=== PATIENT | female | born 1980 | race Hispanic/Latino ===

== ENCOUNTER 2024-10-12 06:18 | Inpatient (IN) | payer SELFPAY ==
[2024-10-12] MEDS ORDERED: NA CHLORIDE 0.9% 1,000 ML ONE ×3 (07:26→16:17)
[2024-10-12] MEDS ORDERED: ONDANSETRON 4 MG/2 ML VIAL ONE ×2 (07:26→16:17)
[2024-10-12 07:44] LABS: Absolute Basophils 0.1 K/uL (0-0.5); Absolute Lymphocytes (CBC) 1.7 K/uL (0.7-4.9); Absolute Monocytes 1.4 K/uL (0.1-1.3); Absolute Neutrophil 21.2 K/uL (1.8-8.0); Basophils % 0.3 % (0-1.3); Hematocrit 23.3 % (36.0-45.0); Hemoglobin 7.3 g/dL (12.0-15.0); Lymphocytes % 7.1 % (15.3-44.8); MCH 18.7 pg (27.0-35.0); MCHC 31.4 g/dL (32.0-36.0); MCV 59.7 fL (80-100); MPV 8.5 fL (7.6-11.3); Monocytes % 5.6 % (3.3-12.3); Nucleated Red Blood Cells % 0.1 % (0-0); Platelets 447 thou/uL (152-406); Red Cell Distribution Width 21.2 % (12.1-15.2)
[2024-10-12 08:08] LABS: Albumin 2.7 g/dL (3.4-5.0); Albumin/Globulin Ratio 0.6 (1.1-1.8); Anion Gap 13.6 mEq/L (5.0-15.0); Bilirubin Direct 0.4 mg/dL (0-0.2); Bilirubin Indirect, Calculated 1.5 mg/dL (0.2-0.8); Bilirubin Total 1.9 mg/dL (0.2-1.0); Globulin 4.5 g/dL (2.3-3.5); Magnesium 1.4 mg/dL (1.6-2.4); Protein, Total 7.2 g/dL (6.4-8.2); Troponin High Sensitivity 13.1 pg/mL (<58.9)
--- NOTE | 2024-10-12 08:08 | RAD REPORT ---
EXAMINATION: CT HEAD WITHOUT CONTRAST CT CERVICAL SPINE WITHOUT CONTRAST CLINICAL INDICATION: Head and neck injury status post fall. Head and neck pain TECHNIQUE: Axial CT images from the skull base to the vertex without intravenous contrast. Axial CT i mages through the cervical spine were obtained without intravenous contrast. Sagittal and coronal reformatted images were created from the data set. Coronal and sagittal reformatted images were creat ed from the data set. One or more of the following dose reduction techniques were used: Automated exposure control, adjustment of the mA and/or kV according to patient size, and/or iterative reconstr uction. Unless otherwise specified, incidental findings do not require dedicated imaging follow-up. [id number]. Comparison: none FINDINGS: An intracranial bleed is not seen. Ventricles are normal in caliber. No significant hypodensity within the brain No extra-axial fluid collection. No fluid within the sinuses/mastoids No fracture or dislocation is seen involving the cervical spine. IMPRESSION: No acute intracranial abnormality noted A cervical fracture is not seen. 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
[2024-10-12 08:10] LABS: PT Prothrombin Time 15.5 SECONDS (10.0-13.0); Protime INR 1.38
[2024-10-12 08:11] LABS: Potassium 2.6 mEq/L (3.5-5.1)
--- NOTE | 2024-10-12 08:11 | RAD REPORT ---
EXAM: CT CHEST, ABDOMEN AND PELVIS WITHOUT CONTRAST CLINICAL INDICATION: Chest and abdominal pain TECHNIQUE: CT chest, abdomen and pelvis was performed, without IV contrast, as per department protoco l. Axial, sagittal and coronal reconstructions were obtained. One or more of the following dose reduction techniques were used: Automated exposure control, adjustment of the mA and/or kV according to the patient size, and/or iterative reconstruction. Unless otherwise specified, incidental findings do not require dedicated imaging follow-up. The lack of IV and oral contrast limits evaluation of the mediastinum, sarai, vessels, organs and clovis l. COMPARISON: None FINDINGS: Lungs are clear. No mediastinal or hilar lymphadenopathy seen. No pleural effusion. No pericardial effusion. Cholelithiasis. Liver, spleen, pancreas, adrenals kidneys and bladder appear grossly normal There is no evidence of diverticulitis IMPRESSION: Cholelithiasis
[2024-10-12 08:20] LABS: Influenza A Ag Negative; Influenza B Ag Negative; SARS-CoV-2 Antigen Rapid Res Negative (Negative)
[2024-10-12 08:28] LABS: Band Neutrophils 14 % (0-1); Differential Total Cells Count 100; Lymphocytes 11 % (15-42); Monocytes 5 % (0-10); Segmented Neutrophils 70 % (40-80)
[2024-10-12 08:29] LABS: Anisocytosis 1+; Blood Morphology Comment NOTED (NOT SEEN); Hypochromasia 1+; Microcytosis 2+; Platelet Estimate ADEQ
--- NOTE | 2024-10-12 08:35 | RAD REPORT ---
Procedure: Chest Single View HISTORY: Cough COMPARISON: none FINDINGS: The lungs appear clear of acute infiltrate. No significant pleural effusion noted. The heart is normal size. IMPRESSION: No acute abnormality is displayed.
--- NOTE | 2024-10-12 08:43 | EDPHYS ---
Physician Documentation [facility] Name: Tameka Jane Age: 43 yrs Sex: Female : 1980 Arrival Date: 10/12/2024 Time: 06:18 Bed 13 Private MD: ED Physician Raza Mejía HPI: 10/12 08:21 This 43 yrs old Female presents to ER via Wheelchair with complaints of Flu lizzy Symptoms, Nausea/Vomiting/Diarrhea, General Weakness. 08:21 The patient presents to the emergency department with nausea, vomiting, diarrhea, lizzy abdominal pain, of the right lower quadrant and left lower quadrant. Onset: The symptoms/episode began/occurred 2 day(s) ago. Possible causes: unknown. The symptoms are aggravated by nothing. The symptoms are alleviated by nothing. Associated signs and symptoms: The patient has no apparent associated signs or symptoms. The patient has not experienced similar symptoms in the past. 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 - Infectious Disease History:: Denies. - Social history:: Smoking status: unknown. ROS: 08:33 Eyes: Negative for injury, pain, redness, and discharge, ENT: Negative for injury, lizzy pain, and discharge, Neck: Negative for injury, pain, and swelling, Cardiovascular: Negative for chest pain, palpitations, and edema, Respiratory: Negative for shortness of breath, cough, wheezing, and pleuritic chest pain, Back: Negative for injury and pain, : Negative for injury, bleeding, discharge, and swelling, MS/Extremity: Negative for injury and deformity, Skin: Negative for injury, rash, and discoloration, Neuro: Negative for headache, weakness, numbness, tingling, and seizure, Psych: Negative for depression, anxiety, suicide ideation, homicidal ideation, and hallucinations, Allergy/Immunology: Negative for hives, rash, and allergies, Endocrine: Negative for neck swelling, polydipsia, polyuria, polyphagia, and marked weight changes, Hematologic/Lymphatic: Negative for swollen nodes, abnormal bleeding, and unusual bruising, 08:33 Cardiovascular: Positive for tachy, 08:33 Abdomen/GI: Positive for abdominal pain, nausea and vomiting, diarrhea, abdominal cramps, abdominal distension, Exam: 08:33 Constitutional: This is a well developed, well nourished patient who is awake, alert, lizzy and in no acute distress. Head/Face: Normocephalic, atraumatic. Eyes: Pupils equal round and reactive to light, extra-ocular motions intact. Lids and lashes normal. Conjunctiva and sclera are non-icteric and not injected. Cornea within normal limits. Periorbital areas with no swelling, redness, or edema. ENT: Nares patent. No nasal discharge, no septal abnormalities noted. Tympanic membranes are normal and external auditory canals are clear. Oropharynx with no redness, swelling, or masses, exudates, or evidence of obstruction, uvula midline. Mucous membranes moist. Neck: Trachea midline, no thyromegaly or masses palpated, and no cervical lymphadenopathy. Supple, full range of motion without nuchal rigidity, or vertebral point tenderness. No Meningismus. Chest/axilla: Normal chest wall appearance and motion. Nontender with no deformity. No lesions are appreciated. Cardiovascular: Regular rate and rhythm with a normal S1 and S2. No gallops, murmurs, or rubs. Normal PMI, no JVD. No pulse deficits. Respiratory: Lungs have equal breath sounds bilaterally, clear to auscultation and percussion. No rales, rhonchi or wheezes noted. No increased work of breathing, no retractions or nasal flaring. Back: No spinal tenderness. No costovertebral tenderness. Full range of motion. Skin: Warm, dry with normal turgor. Normal color with no rashes, no lesions, and no evidence of cellulitis. MS/ Extremity: Pulses equal, no cyanosis. Neurovascular intact. Full, normal range of motion., bilateral aka Neuro: Awake and alert, GCS 15, oriented to person, place, time, and situation. Cranial nerves II-XII grossly intact. Motor strength 5/5 in all extremities. Sensory grossly intact. Cerebellar exam normal. Normal gait. Psych: Awake, alert, with orientation to person, place and time. Behavior, mood, and affect are within normal limits. 08:33 ECG was reviewed by the Attending Physician. 08:33 Abdomen/GI: Inspection: abdomen appears normal, Bowel sounds: hyperactive, Palpation: moderate abdominal tenderness, in the right lower quadrant and left lower quadrant, Liver: no appreciated palpable abnormalities, Hernia: not appreciated, Vital Signs: 06:53 BP 108 / 73; Pulse 101; Resp 18; Temp 98.6; Pulse Ox 100% on R/A; Weight 86.18 kg; br2 Height 4 ft. 11 in. ; Pain 10/; 07:04 BP 107 / 55; Pulse 95; Pulse Ox 100% on R/A; ap3 09:21 BP 134 / 67; Pulse 90; Resp 27; Temp 98.4(O); Pulse Ox 97% on R/A; ap3 10:29 BP 119 / 85; Pulse 92; Pulse Ox 95% on R/A; ap3 11:00 BP 118 / 75; Pulse 96; Resp 19; Pulse Ox 99% ; cm10 11:30 BP 105 / 91; Pulse 99; Resp 19; Pulse Ox 99% ; cm10 12:00 BP 110 / 69; Pulse 93; Resp 19; Pulse Ox 99% ; cm10 12:30 BP 116 / 74; Pulse 94; Resp 19; Pulse Ox 99% ; cm10 13:00 BP 112 / 71; Pulse 96; Resp 19; Pulse Ox 97% ; cm10 13:30 BP 116 / 71; Pulse 94; Resp 19; Pulse Ox 98% ; cm10 14:00 BP 125 / 80; Pulse 98; Resp 19; Pulse Ox 100% ; cm10 14:30 BP 112 / 78; Pulse 94; Resp 19; Pulse Ox 100% ; cm10 15:11 BP 118 / 80; Pulse 98; Resp 18; Pulse Ox 98% on R/A; cm10 16:30 BP 113 / 81; Pulse 102; Resp 18; Pulse Ox 100% on R/A; cm10 06:53 Body Mass Index 38.37 (86.18 kg, 149.86 cm) br2 06:53 Pain Scale: Adult br2 MDM: 07:08 Medical Screening Exam initiated 10/12 07:15 Order name: Basic Metabolic Panel; Complete Time: 08:18 [facility] 10/12 07:15 Order name: CBC with Diff; Complete Time: 08:31 [facility] 10/12 07:15 Order name: LFT's; Complete Time: 08:18 [facility] 10/12 07:15 Order name: Magnesium; Complete Time: 08:18 [facility] 10/12 07:15 Order name: NT PRO-BNP; Complete Time: 08:18 [facility] 10/12 07:15 Order name: PT-INR; Complete Time: 08:18 [facility] 10/12 07:15 Order name: Troponin HS; Complete Time: 08:18 [facility] 10/12 07:15 Order name: Lipase; Complete Time: 08:18 [facility] 10/12 07:15 Order name: COVID-19 Ag + Flu A+B Ag; Complete Time: 08:31 [facility] 10/12 07:48 Order name: Manual Differential; Complete Time: 08:31 EDMS 10/12 08:20 Order name: Phosphorus; Complete Time: 13:38 [facility] 10/12 08:36 Order name: Urinalysis w/ reflexes; Complete Time: 13:38 [facility] 10/12 08:36 Order name: Type And Screen [facility] 10/12 09:24 Order name: Test, Urine; Complete Time: 13:38 EDMS 10/12 10:02 Order name: CBC with Automated Diff EDMS / 10:02 Order name: CBC with Automated Diff EDMS / 10:02 Order name: CBC with Automated Diff EDMS / 10:02 Order name: CBC with Automated Diff EDMS / 10:02 Order name: CBC with Automated Diff EDMS / 10:03 Order name: CBC with Automated Diff EDMS /07 10:03 Order name: CBC with Automated Diff EDMS /07 10:03 Order name: CBC with Automated Diff EDMS / 10:03 Order name: Comprehensive Metabolic Panel EDMS / 10:03 Order name: Comprehensive Metabolic Panel EDMS / 10:03 Order name: Comprehensive Metabolic Panel EDMS / 10:03 Order name: Comprehensive Metabolic Panel EDMS / 10:03 Order name: Comprehensive Metabolic Panel EDMS / 10:03 Order name: Comprehensive Metabolic Panel EDMS / 10:03 Order name: Comprehensive Metabolic Panel EDMS / 10:03 Order name: Comprehensive Metabolic Panel EDMS / 10:03 Order name: Lipid Profile EDMS / 10:03 Order name: Lipid Profile EDMS / 10:03 Order name: Magnesium EDMS / 10:03 Order name: Magnesium EDMS / 10:03 Order name: Magnesium EDMS / 10:03 Order name: Magnesium EDMS / 10:03 Order name: Magnesium EDMS 10/12 10:03 Order name: Magnesium EDMS 10/12 10:03 Order name: Magnesium EDMS 10/12 10:03 Order name: Magnesium EDMS 10/12 10:03 Order name: Phosphorus EDMS 10/12 10:03 Order name: Phosphorus EDMS 10/12 10:03 Order name: Phosphorus EDMS 10/12 10:03 Order name: Phosphorus EDMS 10/12 10:03 Order name: Phosphorus EDMS 10/12 10:03 Order name: Phosphorus EDMS 10/12 10:03 Order name: Phosphorus EDMS 10/12 10:03 Order name: Phosphorus EDMS 10/12 10:03 Order name: Troponin High Sensitivity EDMS 10/12 10:03 Order name: Troponin High Sensitivity EDMS 10/12 10:03 Order name: Troponin High Sensitivity EDMS 10/12 10:19 Order name: Lactate w/ 2H reflex if indic. EDMS 10/12 11:37 Order name: Basic Metabolic Panel EDMS 10/12 11:37 Order name: Magnesium EDMS 10/12 11:37 Order name: Phosphorus EDMS 10/12 13:57 Order name: Potassium EDMS 10/12 07:15 Order name: XRAY Chest (1 view); Complete Time: 08:36 [facility] 10/12 07:26 Order name: Head C Spine Mpr Wo Con; Complete Time: 08:18 EDMS 10/12 07:26 Order name: Chest Abd Pelvis Wo Con; Complete Time: 08:18 EDMS 10/12 08:20 Order name: US Abdomen Limited; Complete Time: 13:38 [facility] 10/12 11:03 Order name: Cholangiogram EDMS 10/12 07:15 Order name: EKG; Complete Time: 07:16 [facility] 10/12 10:02 Order name: CONS Physician Consult EDMS 10/12 11:39 Order name: CONS Physician Consult EDMS 10/12 07:15 Order name: Cardiac monitoring; Complete Time: 07:40 [facility] 10/12 07:15 Order name: EKG - Nurse/Tech; Complete Time: 07:40 [facility] 10/12 07:15 Order name: IV Saline Lock; Complete Time: 07:17 [facility] 10/12 07:15 Order name: Labs collected and sent; Complete Time: 07:40 [facility] 10/12 07:15 Order name: O2 Per Protocol; Complete Time: 07:17 [facility] 10/12 07:15 Order name: O2 Sat Monitoring; Complete Time: : [facility] 10/12 08:38 Order name: IV Saline Lock - Large Bore; Complete Time: :18 [facility] EC:33 Rate is 96 beats/min. Rhythm is regular. QRS [place] is Normal. ND interval is normal. QRS lizzy interval is normal. QT interval is normal. No Q waves. T waves are Normal. No ST changes noted. Clinical impression: NSR w/ Non-specific ST/T Changes and No evidence of ischemia. Interpreted by me. Reviewed by me. Administered Medications: 07:40 Drug: NS 0.9% IV 1000 ml IV at 1000 ml once; to be given as a bolus over 60 minutes ap3 Route: IV; Rate: 1000 ml; Site: right antecubital; 09:20 Follow up: IV Status: Completed infusion; IV Intake: 1000ml ap3 07:40 Drug: Ondansetron IVP 4 mg IVP once; over 2 minutes Route: IVP; Site: right antecubital;ap3 09:20 Follow up: Response: No adverse reaction; Nausea is decreased ap3 09:19 Drug: NS 0.9% with KCl IV 20 mEq/L 1000 ml IV at 125 ml/hr continuous Route: IV; Rate: ap3 125 ml/hr; Site: right antecubital; 14:45 Follow up: Response: No adverse reaction; IV Status: Order to discontinue infusion; IV cm10 Intake: 750ml 09:19 Drug: Famotidine IVP 20 mg IVP once; dilute with 10 mL 0.9% NaCl; give over 2 minutes ap3 Route: IVP; Site: left antecubital; 10:28 Follow up: Response: No adverse reaction ap3 09:19 Drug: metroNIDAZOLE IVPB 500 mg 100 ml IVPB at 200 ml/hr once over 30 mins Volume: 100 ap3 ml; Route: IVPB; Rate: 200 ml/hr; Infused Over: 30 mins; Site: left antecubital; 10:28 Follow up: IV Status: Completed infusion ap3 09:20 Drug: NS 0.9% IV 1000 ml IV at 1000 ml once; to be given as a bolus over 60 minutes ap3 Route: IV; Rate: 1000 ml; Site: left antecubital; 11:15 Follow up: Response: No adverse reaction; IV Status: Completed infusion; IV Intake: cm10 1000ml 09:20 Drug: Potassium Chloride IV 20 mEq IV at per protocol once; administer over 1-2 hours ap3 Route: IV; Rate: per protocol; Site: right antecubital; 11:15 Follow up: Response: No adverse reaction; IV Status: Completed infusion; IV Intake: cm10 100ml 10:19 Drug: Ciprofloxacin IVPB 400 mg 200 ml IVPB once over 60 mins Volume: 200 ml; Route: ap3 IVPB; Infused Over: 60 mins; Site: left antecubital; 11:21 Follow up: Response: No adverse reaction; IV Status: Completed infusion; IV Intake: cm10 200ml 11:15 Drug: Potassium Chloride IV 20 mEq IV at per protocol once; administer over 1-2 hours cm10 Route: IV; Rate: per protocol; Site: right antecubital; 12:15 Follow up: Response: No adverse reaction; IV Status: Completed infusion; IV Intake: cm10 100ml 11:21 Drug: Magnesium Sulfate IVPB 2 grams IVPB once over 2 hrs Route: IVPB; Infused Over: 2 cm10 hrs; Site: left antecubital; 12:21 Follow up: Response: No adverse reaction; IV Status: Completed infusion; IV Intake: cm10 100ml Disposition Summary: 10/12/24 08:42 Hospitalization Ordered Notes: Hospitalization Status: Inpatient Admission lizzy Provider: Shane Mcghee cha Location: Telemetry/[facility] (Inpatient) lizzy Condition: Fair lizzy Problem: new lizzy Symptoms: have improved lizzy Bed/Room Type: Standard lizzy Room Assignment: [facility](10/12/24 16:23) bc6 Diagnosis - Abdominal pain, Generalized lizzy - Fever, unspecified lizzy - Nausea with vomiting, unspecified lizzy - Diarrhea, unspecified lizzy - Bandemia lizzy - Elevated white blood cell count lizzy - Anemia, unspecified lizzy - Hypomagnesemia lizzy - Hypokalemia lizzy - Acute kidney failure, unspecified lizzy Forms: - Medication Reconciliation Form lizzy - SBAR form lizzy - Leadership Thank You Letter lizzy Signatures: Dispatcher [employer] Raza New MD MD cha Prokisch, Amanda, RN RN ap3 Shabana Coe bc6 Angela Bustamante RN RN cm10 Mora Delvalle RN RN br2 Corrections: (The following items were deleted from the chart) 07: 07:16 Head C Spine Cap Wo Con+CT.RAD.BRZ ordered. EDMS EDMS 08:20 08:20 PHOSPHORUS+C.LAB.BRZ ordered. EDMS EDMS 09:24 08:36 TEST, SERUM+SC.LAB.BRZ ordered. EDMS EDMS 16:23 08:42 lizzy bc6
--- NOTE | 2024-10-12 08:43 | ER ---
Nurse's Notes [facility] Name: Tameka Jane Age: 43 yrs Sex: Female : 1980 Arrival Date: 10/12/2024 Time: 06:18 Bed 13 Private MD: Diagnosis: Abdominal pain, Generalized;Fever, unspecified;Nausea with vomiting, unspecified;Diarrhea, unspecified;Bandemia;Elevated white blood cell count;Anemia, unspecified;Hypomagnesemia;Hypokalemia;Acute kidney failure, unspecified Presentation: 10/12 06:53 Chief complaint: Patient states: N/V/F/D SINCE TUESDAY. PT HAS HAD MULTIPLE FALLS DUE br2 TO WEAKNESS AND DIZZINESS. C/O TINGLING TO BILATERAL ARMS, LOWER AB PAIN AND BODYACHES ALL OVER. Coronavirus screen: Client denies travel out of the [place] in the last 14 days. Ebola Screen: Patient denies exposure to infectious person. Initial Sepsis Screen: Does the patient meet any 2 criteria? No. Patient's initial sepsis screen is negative. Does the patient have a suspected source of infection? No. Patient's initial sepsis screen is negative. Risk Assessment: Do you want to hurt yourself or someone else? Patient reports no desire to harm self or others. Onset of symptoms was October 10, 2024. 06:53 Method Of Arrival: Wheelchair br2 06:53 Acuity: [place] 3 br2 Triage Assessment: 06:56 General: Appears uncomfortable, Behavior is calm, cooperative. Pain: Complains of pain br2 in head, chest, pelvis, right arm, right hand, left arm and left hand. GI: Reports lower abdominal pain, diarrhea, nausea, vomiting. MANAGER OPERATING: 10:31 LMP N/A - control method, Not ap3 Historical: - Allergies: 06:56 No Known Allergies; br2 - Immunization history:: Adult Immunizations not up to date. - Infectious Disease History:: Denies. - Social history:: Smoking status: unknown. Screenin:04 Abuse screen: Denies threats or abuse. Nutritional screening: No deficits noted. ap3 Tuberculosis screening: No symptoms or risk factors identified. 10:30 [facility] ED Fall Risk Assessment (Adult) History of falling in the last 3 months, ap3 including since admission No falls in past 3 months (0 pts) Confusion or Disorientation No (0 pts) Intoxicated or Sedated No (0 pts) Impaired Gait Yes (1 pt) Mobility Assist Device Used No (0 pt) Altered Elimination No (0 pt) Score/Fall Risk Level 3 or more points = High Risk Oriented to surroundings, Maintained a safe environment, Educated pt \T\ family on fall prevention, incl call for assistance when getting out of bed, Assessed \T\ reinforced patient's understanding of fall precautions, Hourly rounding (assess needs \T\ fall precautionary measures) done, Used gait belt as appropriate Implemented a Fall Risk Plan of Care, Remained w/in arm's length of patient and in sight while toileting, Offered frequent toileting (1:1 observation), Remained with patient while ambulating, Utilized family, sitter, or virtual wire bender hand as indicated. Assessment: 07:03 General: Appears uncomfortable, Behavior is calm. Pain: Complains of pain in abdomen. ap3 Neuro: Level of Consciousness is awake, alert, obeys commands, Oriented to person, place, time, situation, Appropriate for age. Cardiovascular: Patient's skin is warm and dry. Respiratory: Airway is patent Respiratory effort is even, unlabored, Respiratory pattern is regular, symmetrical. GI: Reports lower abdominal pain, upper abdominal pain. 10:00 General: Appears in no apparent distress. uncomfortable, Behavior is cooperative. cm10 Neuro: No deficits noted. Level of Consciousness is awake, alert, obeys commands, Oriented to person, place, time, situation, Appropriate for age. Respiratory: No deficits noted. Airway is patent Respiratory effort is even, unlabored, Respiratory pattern is regular, symmetrical. GI: Reports upper abdominal pain, diarrhea, nausea. Musculoskeletal: No deficits noted. Range of motion: intact in all extremities. 12:00 Reassessment: Patient appears in no apparent distress at this time. Patient and/or cm10 family updated on plan of care and expected duration. Pain level reassessed. Patient is alert, oriented x 3, equal unlabored respirations, skin warm/dry/pink. 14:00 Reassessment: Patient appears in no apparent distress at this time. Patient and/or cm10 family updated on plan of care and expected duration. Pain level reassessed. Patient is alert, oriented x 3, equal unlabored respirations, skin warm/dry/pink. 16:00 Reassessment: Patient appears in no apparent distress at this time. Patient and/or cm10 family updated on plan of care and expected duration. Pain level reassessed. Patient is alert, oriented x 3, equal unlabored respirations, skin warm/dry/pink. Vital Signs: 06:53 BP 108 / 73; Pulse 101; Resp 18; Temp 98.6; Pulse Ox 100% on R/A; Weight 86.18 kg; br2 Height 4 ft. 11 in. ; Pain 10/10; 07:04 BP 107 / 55; Pulse 95; Pulse Ox 100% on R/A; ap3 09:21 BP 134 / 67; Pulse 90; Resp 27; Temp 98.4(O); Pulse Ox 97% on R/A; ap3 10:29 BP 119 / 85; Pulse 92; Pulse Ox 95% on R/A; ap3 11:00 BP 118 / 75; Pulse 96; Resp 19; Pulse Ox 99% ; cm10 11:30 BP 105 / 91; Pulse 99; Resp 19; Pulse Ox 99% ; cm10 12:00 BP 110 / 69; Pulse 93; Resp 19; Pulse Ox 99% ; cm10 12:30 BP 116 / 74; Pulse 94; Resp 19; Pulse Ox 99% ; cm10 13:00 BP 112 / 71; Pulse 96; Resp 19; Pulse Ox 97% ; cm10 13:30 BP 116 / 71; Pulse 94; Resp 19; Pulse Ox 98% ; cm10 14:00 BP 125 / 80; Pulse 98; Resp 19; Pulse Ox 100% ; cm10 14:30 BP 112 / 78; Pulse 94; Resp 19; Pulse Ox 100% ; cm10 15:11 BP 118 / 80; Pulse 98; Resp 18; Pulse Ox 98% on R/A; cm10 16:30 BP 113 / 81; Pulse 102; Resp 18; Pulse Ox 100% on R/A; cm10 06:53 Body Mass Index 38.37 (86.18 kg, 149.86 cm) br2 06:53 Pain Scale: Adult br2 ED Course: 06:22 Patient arrived in ED. gm2 06:56 Triage completed. br2 06:56 Arm band placed on left wrist. br2 07:00 Inserted saline lock: 20 gauge in right antecubital area, using aseptic technique. hw Blood collected. Flushed with 10 mL NS. 07:03 Annalisa Brown, RN is Primary Nurse. ap3 07:04 Patient has correct armband on for positive identification. Bed in low position. Call ap3 light in reach. Side rails up X2. 07:08 Raza Mejía MD is Attending Physician. lizzy 07:29 EKG done, by ED staff, reviewed by Raza Mejía MD. em1 07:32 XRAY Chest (1 view) In Process Unspecified. EDMS 07:40 COVID-19 Ag + Flu A+B Ag Sent. ap3 07:46 Head C Spine Mpr Wo Con In Process Unspecified. EDMS 07:46 Chest Abd Pelvis Wo Con In Process Unspecified. EDMS 08:40 Shane Mcghee is Hospitalizing Provider. lizzy 09:02 US Abdomen Limited In Process Unspecified. EDMS 09:19 Inserted saline lock: 22 gauge in left antecubital area, using aseptic technique. ap3 Flushed with 10 mL NS. 09:21 Urinalysis w/ reflexes Sent. ap3 10:12 T\T\S collected, blood band applied to patient. em1 10:12 Type And Screen Sent. em1 10:30 No provider procedures requiring assistance completed. ap3 16:40 Provided Education on: Need for admit. cm10 16:40 Patient admitted, IV remains in place. cm10 Administered Medications: 07:40 Drug: NS 0.9% IV 1000 ml IV at 1000 ml once; to be given as a bolus over 60 minutes ap3 Route: IV; Rate: 1000 ml; Site: right antecubital; 09:20 Follow up: IV Status: Completed infusion; IV Intake: 1000ml ap3 07:40 Drug: Ondansetron IVP 4 mg IVP once; over 2 minutes Route: IVP; Site: right antecubital;ap3 09:20 Follow up: Response: No adverse reaction; Nausea is decreased ap3 09:19 Drug: NS 0.9% with KCl IV 20 mEq/L 1000 ml IV at 125 ml/hr continuous Route: IV; Rate: ap3 125 ml/hr; Site: right antecubital; 14:45 Follow up: Response: No adverse reaction; IV Status: Order to discontinue infusion; IV cm10 Intake: 750ml 09:19 Drug: Famotidine IVP 20 mg IVP once; dilute with 10 mL 0.9% NaCl; give over 2 minutes ap3 Route: IVP; Site: left antecubital; 10:28 Follow up: Response: No adverse reaction ap3 09:19 Drug: metroNIDAZOLE IVPB 500 mg 100 ml IVPB at 200 ml/hr once over 30 mins Volume: 100 ap3 ml; Route: IVPB; Rate: 200 ml/hr; Infused Over: 30 mins; Site: left antecubital; 10:28 Follow up: IV Status: Completed infusion ap3 09:20 Drug: NS 0.9% IV 1000 ml IV at 1000 ml once; to be given as a bolus over 60 minutes ap3 Route: IV; Rate: 1000 ml; Site: left antecubital; 11:15 Follow up: Response: No adverse reaction; IV Status: Completed infusion; IV Intake: cm10 1000ml 09:20 Drug: Potassium Chloride IV 20 mEq IV at per protocol once; administer over 1-2 hours ap3 Route: IV; Rate: per protocol; Site: right antecubital; 11:15 Follow up: Response: No adverse reaction; IV Status: Completed infusion; IV Intake: cm10 100ml 10:19 Drug: Ciprofloxacin IVPB 400 mg 200 ml IVPB once over 60 mins Volume: 200 ml; Route: ap3 IVPB; Infused Over: 60 mins; Site: left antecubital; 11:21 Follow up: Response: No adverse reaction; IV Status: Completed infusion; IV Intake: cm10 200ml 11:15 Drug: Potassium Chloride IV 20 mEq IV at per protocol once; administer over 1-2 hours cm10 Route: IV; Rate: per protocol; Site: right antecubital; 12:15 Follow up: Response: No adverse reaction; IV Status: Completed infusion; IV Intake: cm10 100ml 11:21 Drug: Magnesium Sulfate IVPB 2 grams IVPB once over 2 hrs Route: IVPB; Infused Over: 2 cm10 hrs; Site: left antecubital; 12:21 Follow up: Response: No adverse reaction; IV Status: Completed infusion; IV Intake: cm10 100ml Medication: 10:31 VIS not applicable for this client. ap3 Intake: 09:20 IV: 1000ml; Total: 1000ml. ap3 11:15 IV: 100ml; Total: 1100ml. cm10 11:15 IV: 1000ml; Total: 2100ml. cm10 11:21 IV: 200ml; Total: 2300ml. cm10 12:15 IV: 100ml; Total: 2400ml. cm10 12:21 IV: 100ml; Total: 2500ml. cm10 14:45 IV: 750ml; Total: 3250ml. cm10 Outcome: 08:42 Decision to Hospitalize by Provider. lizzy 16:40 Admitted to Med/surg accompanied by nurse, via wheelchair, room 212, 10 16:40 Condition: stable 16:40 Instructed on the need for admit, 17:00 Admitted to Med/surg Report called to faxed to [facility] 17:43 Patient left the ED. 1 Signatures: Dispatcher [employer] EDMS Raza Mejía MD MD cha Martinez, Handy 1 Annalisa Brown RN RN ap3 Richie Montoya RN RN fly1 Angela Bustamante RN RN Caryn Lewis 2 Mora Delvalle RN RN br2 Shelly Fontanez Corrections: (The following items were deleted from the chart) 06:58 06:53 Chief complaint: Patient states: N/V/F/D SINCE TUESDAY. PT HAS HAD MULTIPLE br2 FALLS DUE TO WEAKNESS AND DIZZINESS. C/O TINGLING TO BILATERAL ARMS AND BODYACHES ALL OVER. br2 09:24 09:21 TEST, SERUM+SC.LAB.BRZ drawn and sent. [address]
[2024-10-12] MEDS ORDERED: FAMOTIDINE 20 MG/2 ML VIAL IV ONE (08:52)
[2024-10-12] MEDS ORDERED: NS KCL 20MEQ 1,000 ML IV ONE (08:52)
[2024-10-12] MEDS ORDERED: KCL 20 MEQ/100 mL IVPB 200 ML IV ONE (08:52)
[2024-10-12] MEDS ORDERED: METRONIDAZOLE 500mg IVPB 500 MG/100 ML BAG IV ONE (08:53)
[2024-10-12] MEDS ORDERED: Magnesium Sulfate 2gm IVPB 2 G/50 ML BAG IV ONE (08:53)
[2024-10-12] MEDS ORDERED: CIPROFLOXACIN 400mg IV 400 MG/200 ML BAG IV ONE (08:53)
--- NOTE | 2024-10-12 09:18 | RAD REPORT ---
EXAM: Right upper quadrant ultrasound. CLINICAL HISTORY: Abdominal pain COMPARISON: None FINDINGS: Multiple gallstones. Gallbladder wall appears mildly thickened. Biliary tree normal caliber IMPRESSION: Cholelithiasis Mildly thickened gallbladder wall may indicate cholecystitis
[2024-10-12 09:36] LABS: Specific Gravity 1.019 (1.005-1.030); Sqamous Epithelial <5 /HPF (None Seen); Urine Bacteria <20 /HPF (<20); Urine Bilirubin NEGATIVE (Negative); Urine Blood 2+ (Negative); Urine Clarity Extremely Turbid (Clear); Urine Color Yellow (Yellow); Urine Culture Reflex Order NOT NEEDED; Urine Glucose NEGATIVE (Negative); Urine Ketones 1+ (Negative); Urine Microscopic Reflex YN ORDER UMIC; Urine Mucus Slight /HPF (None Seen); Urine Nitrite NEGATIVE (Negative); Urine Protein 2+ (Negative); Urine RBC <5 /HPF (None Seen); Urine Urobilinogen Normal (Normal); Urine pH 5.5 (5.0-7.0)
[2024-10-12] MEDS ORDERED: ACETAMINOPHEN 325 MG TABLET PO PRN (09:56)
--- NOTE | 2024-10-12 10:07 | P.HP ---
Certification for Inpatient Patient admitted to: Inpatient With expected LOS: >2 Midnights Practitioner: I am a practitioner with admitting privileges, knowledge of patient current condition, hospital course, and medical plan of care. Services: Services provided to patient in accordance with Admission requirements found in Title 42 Section 412.3 of the Code of Federal Regulations Patient History Date of Service: 10/12/24 Reason for admission: Acute cholecystitis History of Present Illness: Tameka Jane is a 43 year old female with Pmhx HTN who presents to the ED with Two days for N/V/D and generalized abdominal pain. She denies having an episode like this in the past. On examination, she is in severe distress d/t intense abdominal pain, afebrile, lungs sounds clear, and Vitals signs stable. Laboratory evaluation significant for WBC 24, H&H 7.3/23 sodium 132, potassium 2.6, BUN/creatinine 28/1.8, magnesium 1.4, total bili 1.9, direct bili 0.4, indirect bili 1.5. CT abdomen pelvis report "Cholelithiasis' Ultrasound abdomen report "Mildly thickened gallbladder wall may indicate cholecystitis" MRCP reports "Cholelithiasis. Mild extrahepatic biliary ductal dilatation with common bile duct measuring 10 mm. No choledocholithiasis or stricture. Low insertion of the cystic duct." Tameka will be admitted to hospitalist service for further evaluation and treatm ent of Sirs 2/2 acute cholecystitis, Dr. Bustamante consulted. Allergies No Known Allergies Allergy (Unverified 10/12/24 10:22) - Past Medical/Surgical History -: HTN Review of Systems Other: per HPI Physical Examination - Physical Exam General: Alert, Oriented x3, Severe distress HEENT: Atraumatic, Normocephalic, PERRLA Neck: Supple, 2+ carotid pulse no bruit Respiratory: Clear to auscultation bilaterally, Normal air movement Cardiovascular: Normal pulses, Regular rate/rhythm, Normal S1 S2 Capillary refill: <2 Seconds Gastrointestinal: Normal bowel sounds, Soft and benign, Tenderness Musculoskeletal: No clubbing Integumentary: No rashes Neurological: Normal speech, Other (Weakkness d/t pain) - Studies Laboratory Data (last 24 hrs) 10/12/24 10/12/24 10/12/24 07:36 07:36 07:36 WBC 24.30 H Hgb 7.3 L Hct 23.3 L Plt Count 447 H PT 15.5 H INR 1.38 Sodium 132 L Potassium 2.6 L* BUN 28 H Creatinine 1.80 H Glucose 95 Magnesium 1.4 L Total Bilirubin 1.9 H AST 17 ALT 17 Alkaline Phosphatase 104 Lipase 34 Assessment and Plan - Plan Assessment and plan Sirs secondary to acute cholecystitis Elevated liver enzymes -Sirs criteria heart rate 101, WBC 23 -Flagyl and Cipro in the ED, Zosyn on the floor -Gentle IV fluid -Antiemetics -Pain control -Clear liquid diet, NPO at midnight -Dr. Bustamante consulted- plan for surgery in the AM -Dr. Pagan consulted -MRCP Cholelithiasis. Mild extrahepatic biliary ductal dilatation with common bile duct measuring 10 mm. No choledocholithiasis or stricture. Low insertion of the cystic duct. Hypokalemia Hypophosphatemia -K 2.6, Phos 1.3 -Replaced in the ED -Monitor in repeat labs Anemia -7.3/23 -Monitor for transfusion -Iron studies pending JAYDEN -BUN/creatinine 20/1.8 -IVF DVT PPx SCD Full code LOS 2 to 3 days Discharge Plan: Home Plan to discharge in: 72 Hours - Advance Directives Does patient have a Living Will: No Does patient have a Durable POA for Healthcare: No
[2024-10-12] MEDS ORDERED: MORPHINE 4 MG/ML SYR ONE (11:36)
[2024-10-12] MEDS: MORPHINE 4 MG/ML SYR IV PRN (11:45)
[2024-10-12] MEDS ORDERED: HYDROMORPHONE HCL 2 MG/ML inj IV PRN (13:35)
--- NOTE | 2024-10-12 15:21 | RAD REPORT ---
EXAMINATION: MR CHOLANGIOGRAM CLINICAL INDICATION: Female, 43 years old. acute cholecystitis TECHNIQUE: Multiplanar, multisequence MR imaging of the abdomen without intravenous contrast, and wit h specific attention to the biliary system. Unless otherwise specified, incidental findings do not require dedicated imaging follow-up. 3D MIP reconstruction performed. COMPARISON: Same day CT FINDINGS: GALLBLADDER: Cholelithiasis is present. No pericholecystic fluid or definite wall thickening identifi ed. The gallbladder is underdistended. BILE DUCTS: The extra hepatic common bile duct measures up to 10 mm but no evidence of choledocholith iasis. Minimal intrahepatic biliary duct dilatation. Low insertion of the cystic duct. LIVER: Limited evaluation but grossly unremarkable. PANCREAS: Normal signal. No mass, ductal dilation, or carolyne-pancreatic fluid. LYMPH NODES: No lymphadenopathy. ADDITIONAL FINDINGS: None. IMPRESSION: Cholelithiasis. Mild extrahepatic biliary ductal dilatation with common bile duct measuring 10 mm. No choledocholithiasis or stricture. Low insertion of the cystic duct.
[2024-10-12] MEDS ORDERED: HYDROMORPHONE HCL 1 MG/ML INJ ONE (16:17)
[2024-10-12] MEDS: NA CHLORIDE 0.9% 1,000 ML IV SCH (16:28)
[2024-10-12] MEDS: POTASSIUM PHOS 30 MM in NA CHLORIDE 0.9% 500 ML IV ONE (16:28)
[2024-10-12] MEDS: HYDROMORPHONE HCL 1 MG/ML INJ IV PRN (16:28)
[2024-10-12] MEDS: ONDANSETRON 4 MG/2 ML VIAL IV PRN (16:29)
[2024-10-12 16:38] VITALS: BMI 38.3
[2024-10-12] MEDS ORDERED: METRONIDAZOLE 500mg IVPB 500 MG/100 ML BAG IV SCH (17:00)
[2024-10-12] MEDS: PIPER TAZO 3.375 GM in NA CHLORIDE 0.9% 100 ML IV SCH (18:00)
[2024-10-12 18:02] VITALS: O2SAT 100
--- NOTE | 2024-10-12 19:47 | CON ---
Date of Consultation: 10/12/2024 Diagnoses: Acute cholecystitis, symptomatic cholelithiasis, increased LFTs. History Of Present Illness: This is the case of a 43-year-old patient, who complained with nausea, v omiting, and abdominal pain since last Tuesday. She has not been able to keep much on diet roy. She denies any trauma, dysuria, hematuria, hematochezia, melena. Denies any recent traveling out of the country. Denies any family member sick at home. Allergies: NONE. Past Surgical History: Include C-sections. Social History: She does not smoke. She does not drink alcohol. Family History: Noncontributory. Medical History: None. Physical Examination: Vital Signs: Reviewed. General: Patient is awake, alert. Eyes: Pupils are equal and reactive. Anicteric. Neck: Supple. Chest: Clear. Heart: S1, S2. Abdomen: Soft and depressible. Epigastric, right upper quadrant pain. The rest of the abdomen is s oft and depressible. Extremities: Good capillary refill. Breasts: Deferred. Pelvic: Deferred. Rectal: Deferred. Laboratory Data: WBC count is 24.3 with hemoglobin of 7.3, INR of 1.38. Potassium is 3.1, sodium is 132, creatinine is 1.8, total bilirubin of 1.9, direct bilirubin of 0.4, indirect bilirubin 1.5. T 17, ALT 17, alkaline phosphate 104. Serum test apparently was canceled. Lipase 34. Radiological Data: Abdominal ultrasound shows mild thickening gallbladder wall may indicate cholecys titis. Multiple gallstones present. CAT scan of the abdomen and pelvis interpreted by Dr. Bk duncan cholelithiasis. Assessment: This is a 43-year-old patient, who comes to us with acute cholecystitis, symptomatic cho lelithiasis. LFTs are slightly elevated. So, MRCP was done. GI was consulted to Dr. Pagan. If MR CP showing signs of a common bile duct stone, then GI has been consulted for ERCP. If not, we will p roceed with laparoscopic, possible open cholecystectomy. The patient is fully explained the benefits , alternatives, and risks including, but not limited to infection, bleeding, damage to adjacent struc tures, anesthesia complication, choledocholithiasis, bile leak, pancreatitis, NV, and even . Alvino hairston also understands this may not relieve symptoms, she might need more than one surgical intervention. She understood and we will see what the MRCP shows and then proceed accordingly. PARIS Voice ID: [id number] Report ID: [id number]
[2024-10-12] MEDS ORDERED: CIPROFLOXACIN 400mg IV 400 MG/200 ML BAG IV SCH (21:00)
[2024-10-12 23:15] LABS: Anion Gap 13.6 mEq/L (5.0-15.0); Potassium 3.6 mEq/L (3.5-5.1)
[2024-10-12 23:16] LABS: Magnesium 2.1 mg/dL (1.6-2.4); Phosphorus 3.8 mg/dL (2.5-4.9)
--- NOTE | 2024-10-13 00:52 | CON ---
Date of Consultation: 10/12/2024 Reason For Consultation: Acute cholecystitis with cholelithiasis with generalized abdominal pain, nausea, vomiting, fevers, chills. History Of Present Illness: The patient is a 43 year-old female with history of hypertension, presented to the hospital with 2-day history of ongoing abdominal pain started in the right and left lower quadrant with diarrhea and then going to the upper abdomen with nausea, vomiting, fevers, chills as well. Patient states the pain has reached 10/10 level. Currently in-hospital with IV pain medicine, it is down to approximately 3/10. Ultrasound of abdomen also revealed gallstone in gallbladder and mildly gallbladder wall consistent with possible acute cholecystitis. Liver numbers have been normal except for total bilirubin of 1.9, but direct bilirubin 0.4, indirect bilirubin 1.5, consistent with possible severe sepsis with a white count of 24,000 and polys of 87%. Past Medical History: Significant for hypertension. Home Medication: Appears none. Social History: She has 4 children. in the past, now. No tobacco. No alcohol. Family History: Father alive with hypertension and a bad back. Mother alive with diabetes, hypertension. Review of Systems: The patient has right and left lower quadrant pain associated with diarrhea over the past few days and extending to the right and left upper quadrant and mid epigastric area with nausea, vomiting, fevers, chills. Of note, the liver numbers are normal. No jaundice noted by patient. No change in urine color or stool color. She denies any chest pain, shortness of breath, seizure, syncope, muscle aches, joint aches, hematemesis, coffee-grounds emesis, hematuria, dysuria, polydipsia, and no depression or anxiety. Physical Examination: Vital Signs: She is 4 feet 11 inches, 189 pounds, BMI of 38.3 kg/sq m. Temperature of 97.8 Fahrenheit, pulse is 88, respirations 18, blood pressure 118/79, O2 saturation 100%. General: She is an obese female, lying in bed, no acute distress. HEENT: Normocephalic, atraumatic. Anicteric. Pupils equal, round, and reactive to light. Oropharynx is clear. Neck: Supple. No masses. Respirations: Clear to auscultation bilaterally. Cardiac: Regular rate and rhythm. Gastrointestinal: Positive bowel sounds. Soft, nondistended. Tenderness all over abdomen. Positive Pike sign, however, as well as also some mild guarding in the lower abdomen as well as the upper abdomen. No hepatosplenomegaly. Extremities: No clubbing, cyanosis, or edema. 2+ pulses Neuro: Alert and oriented x3. Grossly nonfocal. 5/5 motor. Sensation intact to light touch. Laboratory Data: The patient has a white count of 24.3; hemoglobin of 7.3; MCV of , so she has iron deficiency anemia; platelet count was 447; polys of 87%; lymphocytes 7%; monocytes 6%. The patient has a PT of 15.5, INR of 1.38. The patient today had a sodium 132, potassium 2.6, chloride 99, bicarb 22, BUN 28, creatinine 1.8, glucose 95. Lactic 0.9, calcium 8.2, phosphorus low at 1.3, magnesium 1.4, total bili 1.9, direct bili 0.4, indirect bili 1.5, AST of 17, ALT of 17, alkaline phosphatase 104, troponin I of 13.1, normal. B-type natriuretic peptide elevated at 148. Total protein 7.2, albumin lipase 34. UA revealed a pH of 5.5, specific gravity 1.019, 1+ ketone, 1+ blood, 25 leukocyte esterase, less than 5 rbc's, 5 to 10 white blood cells, squamous epithelial cells less than 5, and less than 20 bacteria, 2+ protein. Urine test negative. Influenza negative. COVID negative. CT of abdomen and pelvis revealed gallstones in gallbladder were negative. Ultrasound revealed gallstones in gallbladder with thickening of gallbladder wall consistent with possible cholecystitis. No noted. MRCP noted gallstones in gallbladder, common bile duct clear except as slightly dilated to 10 mm. No stone or stricture seen. Low insertion of the cystic duct noted as well. Her AST, ALT of 17 and 17, normal alkaline phosphatase 104. Impression: 1. Acute cholecystitis and cholelithiasis with CT revealing gallstones in gallbladder, ultrasound revealed gallstones in gallbladder with mild thickened gallbladder wall consistent with cholecystitis. Normal biliary tree. MRCP revealed gallstones in gallbladder. No gallstones noted in the biliary tree. CBD mildly elevated 10 mm. No stone or strictures . There is a low insertion point for the cystic duct. Also, AST and ALT are normal at 17 and 17, alkaline phosphatase normal 104, total bilirubin 1.9, and direct bilirubin 0.4, indirect bilirubin 1.5, consistent with possible sepsis or syndrome or other. Lipase normal at 34. 2. Sepsis. White count of 24.3, polys of 87%. Likely source is acute cholecystitis in this patient, though she does have diarrhea with change in bowel habits, which could be a source as well. 3. Urinary tract possible with the leukocyte esterase 25, and less than 5 squamous epithelial cells and 2+ protein, otherwise is negative. 4. Probable iron deficiency anemia with hemoglobin of 7.3, MCV of . 5. Coagulopathy with INR of 1.38. 6. Renal failure could be acute on chronic with a creatinine of 1.8. 7. History of hypertension. 8. Change in bowel habits, diarrhea, right and left lower quadrant pain could be associated with colitis or gastroenteritis. Recommendation: 1. Continue IV fluids, IV antibiotics. 2. Keep patient n.p.o. 3. Check stool studies. 4. Laparoscopic cholecystectomy as per Surgery. 5. Check iron numbers. HECTOR/JO Voice ID: [id number] Report ID: [id number]
[2024-10-13 03:53] LABS: C.diff Antigen/Toxin Ag neg : Tox neg (NEG : NEG); CDIFF INTERNAL NEG CONTROL White Background (WHITE BKGD); STOOL CONSISTENCY Liquid/Semi-Solid
[2024-10-13 05:22] LABS: Absolute Basophils 0.1 K/uL (0-0.5); Absolute Lymphocytes (CBC) 1.2 K/uL (0.7-4.9); Absolute Monocytes 1.2 K/uL (0.1-1.3); Absolute Neutrophil 11.7 K/uL (1.8-8.0); Basophils % 0.4 % (0-1.3); Eosinophils % 0.3 % (0-4.4); Hematocrit 19.8 % (36.0-45.0); Lymphocytes % 8.4 % (15.3-44.8); MCH 18.3 pg (27.0-35.0); MCHC 30.4 g/dL (32.0-36.0); MCV 60.2 fL (80-100); MPV 8.2 fL (7.6-11.3); Monocytes % 8.6 % (3.3-12.3); Neutrophils % 82.3 % (41.7-73.7); Platelets 361 thou/uL (152-406); RBC Red Blood Cell Count 3.29 M/uL (3.86-4.86)
[2024-10-13 05:48] LABS: ALT/SGPT 37 U/L (13-56); AST/SGOT 61 U/L (15-37); Albumin 2.1 g/dL (3.4-5.0); Albumin/Globulin Ratio 0.5 (1.1-1.8); Alkaline Phosphatase 120 U/L (45-117); Anion Gap 11.4 mEq/L (5.0-15.0); BUN Blood Urea Nitrogen 20 mg/dL (7-18); Bicarbonate 21 mEq/L (21-32); Bilirubin Total 1.1 mg/dL (0.2-1.0); Ferritin 78.9 ng/mL (8-252); Globulin 3.9 g/dL (2.3-3.5); Glomerular Filtration Rate 68 ml/min (=/>90); Glucose Level 98 mg/dL (74-106); HDL Cholesterol 31 mg/dL (40-60); LDL Cholesterol, Calculated 39 mg/dL (<130); LDL Cholesterol,Calc NonReport 39; Magnesium 2.2 mg/dL (1.6-2.4); Phosphorus 2.1 mg/dL (2.5-4.9); Potassium 3.4 mEq/L (3.5-5.1); Sodium Level 137 mEq/L (136-145); Transferrin 175 mg/dL (200-360)
[2024-10-13 05:50] LABS: Iron < 10.0 ug/dL (50-170)
[2024-10-13] MEDS: KCL 20 MEQ/100 mL IVPB 20 MEQ/100 ML BAG IV SCH (10:59)
--- NOTE | 2024-10-13 13:18 | P.PN ---
Date of Service: 10/13/24 Subjective Feeling better this morning severe anemia, PRBC transfusion today ROS 10 point ROS as noted above, otherwise negative Physical Exam General: Alert, Oriented x3, NAD HEENT: Atraumatic, Normocephalic, PERRLA Neck: Supple, 2+ carotid pulse no bruit Respiratory: Clear to auscultation bilaterally, Normal air movement Cardiovascular: Normal pulses, RRR, Normal S1 S2 Capillary refill: <2 Seconds Gastrointestinal: Normal bowel sounds, Soft and Tender on palpation Musculoskeletal: No clubbing Integumentary: No rashes Neurological: Normal speech Vitals Reviewed Problem list Sirs secondary to acute cholecystitis Elevated liver enzymes Hypokalemia Hypophosphatemia Anemia JAYDEN Assessment and Plan Sirs secondary to acute cholecystitis Elevated liver enzymes -Sirs criteria heart rate 101, WBC 23 -Flagyl and Cipro in the ED, Zosyn on the floor -Gentle IV fluid -Antiemetics -Pain control -Clear liquid diet, NPO at midnight -Dr. Bustamante consulted- plan for surgery in the AM -Dr. Pagan consulted -MRCP Cholelithiasis. Mild extrahepatic biliary ductal dilatation with common bile duct measuring 10 mm. No choledocholithiasis or stricture. Low insertion of the cystic duct. Hypokalemia Hypophosphatemia -K 2.6, Phos 1.3 -Replaced in the ED -Monitor in repeat labs Anemia -7.10/28 -Monitor for transfusion -Iron studies pending JAYDEN -BUN/creatinine 20/1.8 -IVF Hospital interval course 10/13/24 -Severely anemic, needing transfusion today -Dr. Bustamante requests postpone surgery till Sunday 10/15 -Reports feeling much better today -WBC and electrolytes improved DVT PPx SCD Full code LOS 2 to 3 days Discharge Plan: Home Plan to discharge in: 72 Hours
--- NOTE | 2024-10-13 14:32 | PN ---
Diagnoses: Hypokalemia, acute cholecystitis, gastroenteritis, anemia. Subjective: The patient feels better. She was scheduled for surgery today after the MRI shows no ch oledocholithiasis, but we note she has a few things at the same time, we explained to her anemia of 6 is a little bit too low right now. She clinically feels better with no more nausea or vomiting, no more diarrhea that she was before. The potassium was corrected. Right now, she is starting to get b lood transfusion, starting to work in the next few hours, and then hydration is in process too, repla cement of also other electrolytes. Objective: Chest: Clear right now. Abdomen: Soft and depressible. No guarding or rebound. No Pike sign today. Extremities: Good capillary refill. Data: Blood work was reviewed. White count is getting better. Plan: Continue with same plan of laparoscopic possible open cholecystectomy once medically she is op timized since we see some improvement already. We expect that in the next 24-48 hours. DEEPTI/RONNIEL Voice ID: [id number] Report ID: [id number]
--- NOTE | 2024-10-13 14:47 | P.PN ---
Subjective Date of Service: 10/13/24 Chief Complaint: Acute cholecystitis, possible UTI and gastroenteritis, anemia Subjective: No new changes (Hgb down to 6.0 from 7.3 yesterday. No blood seen by patient but has iron deficiency anemia and sepsis. WBC has come down from 24 to 14k overnight on IV antibiotics. Tolerating po clear liquid diet now. Family at bedside.) Review of Systems 10-point ROS is otherwise unremarkable General: Weakness (Improving), Malaise (Improving) Gastrointestinal: Abdominal Pain (Improving) Physical Examination - Vital Signs Temperature: 98.3 F Blood Pressure: 122/77 Pulse: 83 Respirations: 16 Pulse Ox (%): 99 - Physical Exam General: Alert, In no apparent distress, Oriented x3, Cooperative HEENT: Atraumatic, Normocephalic, PERRLA, EOMI Neck: Supple Respiratory: Normal air movement Cardiovascular: Normal pulses Gastrointestinal: No rebound, No guarding, Tenderness (Improving) Neurological: Normal speech, Normal strength at 5/5 x4 extr Assessment And Plan - Current Problems (Diagnosis) (1) Acute cholecystitis Current Visit: Yes Status: Acute (2) RUQ abdominal pain Current Visit: Yes Status: Acute (3) Epigastric abdominal pain Current Visit: Yes Status: Acute (4) LUQ abdominal pain Current Visit: Yes Status: Acute (5) Nausea & vomiting Current Visit: Yes Status: Acute (6) Abnormal ultrasound Current Visit: Yes Status: Acute (7) Gastroenteritis Current Visit: Yes Status: Acute (8) Change in bowel habits Current Visit: Yes Status: Acute (9) Diarrhea Current Visit: Yes Status: Acute (10) RLQ abdominal pain Current Visit: Yes Status: Acute (11) LLQ pain Current Visit: Yes Status: Acute (12) UTI (urinary tract infection) Current Visit: Yes Status: Acute (13) Sepsis Current Visit: Yes Status: Acute (14) Anemia, iron deficiency Current Visit: Yes Status: Acute - Plan REC: 1) continue IVFs and IV antibiotics 2) lap racheal as per surgery 3) agree with PRBC transfusion 4) monitor labs
[2024-10-13 19:03] LABS: Hematocrit 25.5 % (36.0-45.0); Hemoglobin 7.8 g/dL (12.0-15.0)
[2024-10-14] MEDS: NA CHLORIDE 0.9% 250 ML IV SCH (04:06)
[2024-10-14 05:54] LABS: Absolute Eosinophils 0.1 K/uL (0-0.5); Absolute Lymphocytes (CBC) 1.2 K/uL (0.7-4.9); Absolute Monocytes 0.8 K/uL (0.1-1.3); Absolute Neutrophil 9.3 K/uL (1.8-8.0); Basophils % 0.4 % (0-1.3); Eosinophils % 0.6 % (0-4.4); Hematocrit 24.9 % (36.0-45.0); Hemoglobin 7.6 g/dL (12.0-15.0); Lymphocytes % 10.6 % (15.3-44.8); MCH 19.6 pg (27.0-35.0); MCHC 30.4 g/dL (32.0-36.0); MCV 64.5 fL (80-100); MPV 8.5 fL (7.6-11.3); Monocytes % 6.6 % (3.3-12.3); Nucleated Red Blood Cells % 0.1 % (0-0); Platelets 370 thou/uL (152-406); RBC Red Blood Cell Count 3.86 M/uL (3.86-4.86); Red Cell Distribution Width 23.5 % (12.1-15.2)
[2024-10-14 06:04] LABS: Neutrophils % 81.8 % (41.7-73.7)
[2024-10-14 06:30] LABS: Albumin 2.2 g/dL (3.4-5.0); Albumin/Globulin Ratio 0.6 (1.1-1.8); Anion Gap 9.6 mEq/L (5.0-15.0); Bilirubin Total 1.2 mg/dL (0.2-1.0); Magnesium 2.1 mg/dL (1.6-2.4); Phosphorus 1.9 mg/dL (2.5-4.9); Potassium 3.6 mEq/L (3.5-5.1); Protein, Total 6.2 g/dL (6.4-8.2)
[2024-10-14] MEDS: POTASS/SODIUM PHOSPHATE 1 PKT POWD.PACK PO SCH (09:00)
[2024-10-14] MEDS ORDERED: NA CHLORIDE 0.9% 250 ML IV SCH ×2 (11:00)
--- NOTE | 2024-10-14 14:35 | P.PN ---
Subjective Date of Service: 10/14/24 Chief Complaint: Acute cholecystitis, possible UTI and gastroenteritis, anemia Subjective: Improving (Sitting up in bed, doing makeup. Tolerated CLs, except for jello which resulted in upper abdominal pain and N/V.) Review of Systems 10-point ROS is otherwise unremarkable General: Weakness (Improved.) Gastrointestinal: Abdominal Pain (Improved.) Physical Examination - Vital Signs Temperature: 97.9 F Blood Pressure: 145/83 Pulse: 83 Respirations: 16 Pulse Ox (%): 99 - Physical Exam General: Alert, In no apparent distress, Oriented x3, Cooperative HEENT: Atraumatic, Normocephalic, PERRLA, EOMI Neck: Supple Respiratory: Normal air movement Cardiovascular: Normal pulses Gastrointestinal: No rebound, No guarding, Tenderness (Improved.) Neurological: Normal speech, Normal strength at 5/5 x4 extr Assessment And Plan - Current Problems (Diagnosis) (1) Acute cholecystitis Current Visit: Yes Status: Acute (2) RUQ abdominal pain Current Visit: Yes Status: Acute (3) Epigastric abdominal pain Current Visit: Yes Status: Acute (4) LUQ abdominal pain Current Visit: Yes Status: Acute (5) Nausea & vomiting Current Visit: Yes Status: Acute (6) Abnormal ultrasound Current Visit: Yes Status: Acute (7) Gastroenteritis Current Visit: Yes Status: Acute (8) Change in bowel habits Current Visit: Yes Status: Acute (9) Diarrhea Current Visit: Yes Status: Acute (10) RLQ abdominal pain Current Visit: Yes Status: Acute (11) LLQ pain Current Visit: Yes Status: Acute (12) UTI (urinary tract infection) Current Visit: Yes Status: Acute (13) Sepsis Current Visit: Yes Status: Acute (14) Anemia, iron deficiency Current Visit: Yes Status: Acute - Plan REC: 1) continue IVFs and IV antibiotics 2) lap racheal as per surgery 3) agree with PRBC transfusion 4) monitor labs
--- NOTE | 2024-10-14 16:13 | P.PN ---
Date of Service: 10/14/24 Subjective Continues to feel better Tolerating n.p.o. with sips of water No new complaints ROS 10 point ROS as noted above, otherwise negative Physical Exam General: AAO x3, NAD Neck: Supple, 2+ carotid pulse no bruit Respiratory: Clear BBS, Normal air movement, on RA Cardiovascular: regular rate and rhythm, Normal S1 S2 Capillary refill: <2 Seconds Gastrointestinal: Normal bowel sounds, Soft on palpation Musculoskeletal: No clubbing Integumentary: No rashes Neurological: Normal speech Vitals Reviewed Problem list Sirs secondary to acute cholecystitis Elevated liver enzymes Hypokalemia Hypophosphatemia Anemia JAYDEN Assessment and Plan Sirs secondary to acute cholecystitis Elevated liver enzymes -Sirs criteria heart rate 101, WBC 23 -Flagyl and Cipro in the ED, Zosyn on the floor -Gentle IV fluid -Antiemetics -Pain control -Clear liquid diet, NPO at midnight -Dr. Bustamante consulted- plan for surgery in the AM -Dr. Pagan consulted -MRCP Cholelithiasis. Mild extrahepatic biliary ductal dilatation with common bile duct measuring 10 mm. No choledocholithiasis or stricture. Low insertion of the cystic duct. Hypokalemia Hypophosphatemia -K 2.6, Phos 1.3 -Replaced in the ED -Monitor in repeat labs Anemia -7.10/28 -Monitor for transfusion -Iron studies pending JAYDEN -BUN/creatinine 1.8 -IVF Hospital interval course 10/13/24 -Severely anemic, needing transfusion today -Dr. Bustamante requests postpone surgery till Sunday 10/15 -Reports feeling much better today -WBC and electrolytes improved 10/14/24 -H/H 7.6/24.9 -1 unit packed red blood cells transfused last night, 1 unit packed red blood cells transfusing today -Plan for surgery in the a.m. per Dr. Bustamante -Continue IV fluids and antibiotics -Kidney function normalized DVT PPx SCD Full code LOS 2 to 3 days Discharge Plan: Home Plan to discharge in: 72 Hours <Alla Cordova - Last Filed: 10/14/24 16:07> Patient seen and examined, plan of care discussed with Ms. Cordova. Patient is planned for lap cholecystectomy tomorrow. Optimize electrolytes Transfuse PRBC for target hemoglobin of 8. Analgesics as needed. Continue antibiotics. Anemia likely secondary to blood loss from menses. Patient will need to follow-up with PCP regarding iron deficiency treatment. <latoya chu - Last Filed: 10/14/24 17:59>
[2024-10-14 21:04] LABS: Hematocrit 28.7 % (36.0-45.0)
[2024-10-14] MEDS: PROMETHAZINE INJ 25 MG/ML AMP IV ONE (21:06)
[2024-10-15 06:05] LABS: Absolute Basophils 0.1 K/uL (0-0.5); Absolute Eosinophils 0.1 K/uL (0-0.5); Absolute Lymphocytes (CBC) 1.1 K/uL (0.7-4.9); Absolute Neutrophil 10.5 K/uL (1.8-8.0); Basophils % 0.7 % (0-1.3); Eosinophils % 0.4 % (0-4.4); Hematocrit 27.9 % (36.0-45.0); Hemoglobin 8.9 g/dL (12.0-15.0); Lymphocytes % 8.6 % (15.3-44.8); MCHC 31.8 g/dL (32.0-36.0); MCV 65.9 fL (80-100); MPV 7.4 fL (7.6-11.3); Neutrophils % 82.3 % (41.7-73.7); Platelets 455 thou/uL (152-406); RBC Red Blood Cell Count 4.24 M/uL (3.86-4.86); Red Cell Distribution Width 25.8 % (12.1-15.2)
[2024-10-15 06:26] LABS: Albumin 2.1 g/dL (3.4-5.0); Albumin/Globulin Ratio 0.5 (1.1-1.8); Anion Gap 10.4 mEq/L (5.0-15.0); Bilirubin Total 1.3 mg/dL (0.2-1.0); Globulin 4.4 g/dL (2.3-3.5); Magnesium 1.8 mg/dL (1.6-2.4); Phosphorus 1.7 mg/dL (2.5-4.9); Potassium 3.4 mEq/L (3.5-5.1); Protein, Total 6.5 g/dL (6.4-8.2)
[2024-10-15] MEDS: MAGNESIUM SULFATE 1 gm IVPB 1 GM/100 ML BAG IV ONE (06:42)
[2024-10-15] MEDS: POTASSIUM CL SA 10 MEQ TAB PO ONE (09:08)
[2024-10-15] MEDS: POTASSIUM PHOS IN 0.9 % NACL 15 MMOL/250 ML BAG IV ONE (09:13)
[2024-10-15] MEDS: PIPER TAZO 3.375 GM in NA CHLORIDE 0.9% 100 ML IV SCH (09:14)
[2024-10-15] MEDS: Ringers Lactate 1,000 ML IV ONE (11:35)
[2024-10-15] MEDS ORDERED: FENTANYL CITR 100 MCG/2 ML ONE (12:30)
[2024-10-15] MEDS ORDERED: ONDANSETRON 4 MG/2 ML VIAL ONE (12:30)
[2024-10-15] MEDS ORDERED: MIDAZOLAM HCL 2 MG/2 ML INJ ONE (12:30)
[2024-10-15] MEDS ORDERED: ROCURONIUM 50 MG/5 ML VIAL IV ONE (12:30)
[2024-10-15] MEDS ORDERED: dexAMETHasone 10 MG/ML VIAL ONE (12:30)
[2024-10-15] MEDS ORDERED: LIDOCAINE 2% MPF 5 ML VIAL ONE (12:30)
[2024-10-15] MEDS ORDERED: KETOROLAC 30 MG/ML INJ ONE (12:30)
[2024-10-15] MEDS ORDERED: propofoL 200 MG/20 ML VIAL IV ONE (12:30)
[2024-10-15] MEDS ORDERED: NEOSTIGMINE 1 MG/ML -10 ML VIAL ONE (13:57)
[2024-10-15] MEDS ORDERED: GLYCOPYRROLATE 0.2 MG/ML SYR ONE (13:57)
--- NOTE | 2024-10-15 14:06 | P.BOP ---
Preoperative diagnosis: Acute cholecystitis, symptomatic cholelithiasis, anemia, s/p MRCP Postoperative diagnosis: same Primary procedure: Laparoscopic cholecystectomy Estimated blood loss: <10cc Specimen: gb Findings: inflaamed gallbladder, distended Anesthesia: General Complications: None Drain(s): CELSO drain Transferred to: Recovery Room Condition: Good
[2024-10-15] MEDS: ONDANSETRON 4 MG/2 ML VIAL ONE (14:24)
[2024-10-15] MEDS: HYDROCODONE/APAP 5/325 MG TAB PO PRN (16:03)
--- NOTE | 2024-10-15 16:11 | P.PN ---
Date of Service: 10/15/24 Subjective Pain has returned this morning tolerating NPO Plan for surgery today Hemoglobin acceptable for surgery ROS 10 point ROS as noted above, otherwise negative Physical Exam General: Alert and oriented x3, NAD Neck: Supple, 2+ carotid pulse no bruit Respiratory: Clear BBS, Nonlabored breathing, on RA Cardiovascular: NSR, S1 S2 present, Normal S1 S2 Capillary refill: <2 Seconds Gastrointestinal: Normal bowel sounds, Soft and tender on palpation Musculoskeletal: No clubbing Integumentary: No rashes Neurological: Normal speech Vitals Reviewed Problem list Sirs secondary to acute cholecystitis Elevated liver enzymes Hypokalemia Hypophosphatemia Anemia 2/2 blood loss menses Anemia JAYDEN Assessment and Plan Sirs secondary to acute cholecystitis Elevated liver enzymes -Sirs criteria heart rate 101, WBC 23 -Flagyl and Cipro in the ED, Zosyn on the floor -Gentle IV fluid -Antiemetics -Pain control -Clear liquid diet, NPO at midnight -Dr. Bustamante consulted- plan for surgery in the AM -Dr. Pagan consulted -MRCP Cholelithiasis. Mild extrahepatic biliary ductal dilatation with common bile duct measuring 10 mm. No choledocholithiasis or stricture. Low insertion of the cystic duct. Hypokalemia Hypophosphatemia -K 2.6, Phos 1.3 -Replaced in the ED -Monitor in repeat labs Anemia 2/2 blood loss menses -H/H 8.9/27.9 -Monitor for transfusion -Iron studies pending JAYDEN -BUN/creatinine 23/0.81 -IVF Hospital interval course 10/13/24 -Severely anemic, needing transfusion today -Dr. Bustamante requests postpone surgery till Sunday 10/15 -Reports feeling much better today -WBC and electrolytes improved 10/14/24 -H/H 7.6/24.9 -1 unit packed red blood cells transfused last night, 1 unit packed red blood cells transfusing today -Plan for surgery in the a.m. per Dr. Bustamante -Continue IV fluids and antibiotics -Kidney function normalized 10/15/24 -Surgery today -will advance diet slowly -monitor LFTs in the AM -likely discharge in the AM if tolerating diet DVT PPx SCD Full code LOS 2 to 3 days Discharge Plan: Home Plan to discharge in: 72 Hours
--- NOTE | 2024-10-15 21:24 | OP ---
Date of Procedure: 10/15/2024 Surgeon: Ozzy Bustamante MD Preoperative Diagnoses: Acute right upper quadrant pain, acute cholecystitis, symptomatic cholelithi asis, anemia status post magnetic resonance cholangiopancreatography, hypokalemia. Postoperative Diagnoses: Acute right upper quadrant pain, acute cholecystitis, symptomatic cholelith iasis, anemia, status post magnetic resonance cholangiopancreatography, hypokalemia. Procedure: Laparoscopic cholecystectomy. Anesthesia: General plus local. Estimated Blood Loss: Less than 10 mL. Specimens: Gallbladder. Findings: Inflamed gallbladder distended. Drains: CELSO #10. Complications: None. Indications: This is the case of a female, who comes to us with multiple problems at the same time. She has hypokalemia, she has anemia, she has right upper quadrant abdominal pain, and some diarrhea. Some findings are inconsistent with gastroenteritis. The patient was seen by the gastroenterologis t. Since the patient with mild LFTs elevated, an MRCP was done and seems to have no stone in the com mon bile duct. Over the weekend, the patient was optimized, at one point, she was booked over the we ekend, but then found out that she was not medically optimized yet. Finally, we have a clearance fro m today, so we offered her once again laparoscopic, possible open cholecystectomy with benefits, alte rnatives, and risks including, but not limited to infection, bleeding, damage to adjacent structures, anesthesia complication, choledocholithiasis, bile leak, pancreatitis, ME, and even . She also understands this may not relieve any symptoms, she might need more than one surgical intervention. She understood and signed a consent. Description Of Procedure: The patient was brought to the operating room, placed in supine position. Anesthesia was without complication. Abdominal area was prepped and draped in the usual sterile fas hion. Local anesthesia was applied followed by sharp incision of the skin in the periumbilical regio n. Incision was carried down to fascia, which was opened under direct vision. Peritoneum was encoun tered, opened under direct vision. Vicryl #1 placed inside the fascia. Kelly trocar was carefully introduced. Pneumoperitoneum was obtained. I placed 3 more trocars, 5 mm each one of them, 1 in the epigastric area, 2 in the right upper quadrant using same technique, which consisted of local anesth etic, sharp incision of the skin, introduction of the trocars under direct vision. We noticed edemat ous distended gallbladder. The stones were to the point that it was hard to grab the gallbladder, so we were very gentle with it because there were some areas of severe inflammation. Grasper in the fu ndus of the gallbladder, another grasper in infundibulum retracting the gallbladder in the inferolate ral fashion exposing the triangle of Calot, and obtaining critical view. Cystic duct and cystic erich ry were clearly isolated, freed circumferentially, and a connection between those and the gallbladder were clearly identified. I proceeded to ligate those by using at least 3 clips proximal, 1 clip dis gretel, ligation in middle. Same was done with the cystic artery, no bile leak. No bleeding. The gall bladder was removed from the liver using the Bovie cauterizer and removed from abdominal cavity using an EndoCatch through the umbilical incision. Due to the inflammation in that area, I decided just t o leave a CELSO drain in that region and exiting through one of the trocar sites and secured that with 3 -0 nylon. At that moment, I proceeded to irrigate suction. Clips were intact. No bleeding. No bow el leak. Gallbladder fossa with no bleeding. At that moment, I proceeded to remove the trocars unde r direct vision. Deflated pneumoperitoneum. Closed the fascia with #1 Vicryl, irrigated with subcut aneous tissue, closed that with 3-0 chromic and skin with yumiko. Sponge count and instrument count s were correct, the patient tolerated the procedure well. The patient was sent to the recovery in stab le condition. DEEPTI/JO Voice ID: [id number] Report ID: [id number]
[2024-10-16 05:44] LABS: Absolute Basophils 0.1 K/uL (0-0.5); Absolute Monocytes 0.8 K/uL (0.1-1.3); Absolute Neutrophil 13.8 K/uL (1.8-8.0); Basophils % 0.4 % (0-1.3); Hematocrit 27.5 % (36.0-45.0); Hemoglobin 8.6 g/dL (12.0-15.0); Lymphocytes % 6.5 % (15.3-44.8); MCH 20.9 pg (27.0-35.0); MCHC 31.5 g/dL (32.0-36.0); MCV 66.5 fL (80-100); MPV 7.2 fL (7.6-11.3); Monocytes % 5.1 % (3.3-12.3); Nucleated Red Blood Cells % 0.1 % (0-0); Platelets 456 thou/uL (152-406); RBC Red Blood Cell Count 4.13 M/uL (3.86-4.86)
[2024-10-16 06:05] LABS: Albumin 2.1 g/dL (3.4-5.0); Albumin/Globulin Ratio 0.5 (1.1-1.8); Bilirubin Total 0.6 mg/dL (0.2-1.0); Globulin 4.2 g/dL (2.3-3.5); Phosphorus 2.8 mg/dL (2.5-4.9); Protein, Total 6.3 g/dL (6.4-8.2)
[2024-10-16 10:53] LABS: Platelet Estimate INCR; White Blood Cell Scan OK (OK)
[2024-10-16 10:54] LABS: Anisocytosis 3+; Blood Morphology Comment NOTED (NOT SEEN); Hypochromasia 1+; Microcytosis 1+; Ovalocytes 1+
--- NOTE | 2024-10-16 11:19 | EKG ---
Test Date: 2024-10-12 Test Time: 07:27:01 Extension Service Advisor: JOSE MEASUREMENT RESULTS: Intervals: Rate: 96 ID: [id number] QRSD: 98 QT: 358 QTc: 452 [place]: P: 59 ID: [id number] QRS: 37 T: 41 INTERPRETIVE STATEMENTS: Normal sinus rhythm Normal ECG No previous ECG available for comparison Electronically Signed On 10-16-24 11:04:54 CDT by Florentino Woodard
[2024-10-16 11:30] VITALS: BP 142/80; TEMP 97.5
--- NOTE | 2024-10-16 13:12 | P.DS ---
Admission Date: 10/12/24 Discharge Date: 10/16/24 Disposition: ROUTINE DISCHARGE Discharge Condition: GOOD Reason for Admission: Acute cholecystitis, possible UTI and gastroenteritis, anemia Brief History of Present Illness: Tameka Jane is a 43 year old female with Pmhx HTN who presents to the ED with Two days for N/V/D and generalized abdominal pain. She denies having an episode like this in the past. On examination, she is in severe distress d/t intense abdominal pain, afebrile, lungs sounds clear, and Vitals signs stable. Laboratory evaluation significant for WBC 24, H&H 7.3/23 sodium 132, potassium 2.6, BUN/creatinine 28/1.8, magnesium 1.4, total bili 1.9, direct bili 0.4, indirect bili 1.5. CT abdomen pelvis report "Cholelithiasis' Ultrasound abdomen report "Mildly thickened gallbladder wall may indicate cholecystitis" MRCP reports "Cholelithiasis. Mild extrahepatic biliary ductal dilatation with common bile duct measuring 10 mm. No choledocholithiasis or stricture. Low insertion of the cystic duct." Tameka will be admitted to hospitalist service for further evaluation and treatment of Sirs 2/2 acute cholecystitis, Dr. Bustamante consulted. Hospital Course: Problem list Sirs secondary to acute cholecystitis Elevated liver enzymes Hypokalemia Hypophosphatemia Anemia 2/2 blood loss menses and iron deficiency JAYDEN Patient was admitted to the hospital for acute cholecystitis. She was also noted to be anemic during her hospitalization requiring blood transfusion of 2 units which is likely secondary to heavy menses. Surgery was initially delayed given need for blood transfusion, MRCP was also performed which showed mild extrahepatic biliary ductal dilatation with CBD measuring 10 mm, no choledocholithiasis or stricture was noted. Her iron level was extremely low, less than 10 TIBC 245 transferring 175 transferring saturation percent was 4.1 and ferritin was 78.9. She underwent a laparoscopic cholecystectomy on 10/15/2024, a CELSO drain was placed and patient is been doing very well postoperatively. She stable for discharge and outpatient follow-up on Thursday 10/19 with general surgery to have her CELSO drain removed. CELSO drain with small amount of serosanguineous drainage thus far. Also discussed need for iron supplementation and follow-up with [facility] at discharge in regards to heavy menses Vital Signs/Physical Exam: Temp Pulse Resp BP Pulse Ox 97.5 F 68 15 142/80 H 100 10/16/24 11:29 10/16/24 11:29 10/16/24 11:29 10/16/24 11:29 10/16/24 11:29 General: Alert, In no apparent distress, Oriented x3 HEENT: Atraumatic, PERRLA Neck: Supple, JVD not distended Respiratory: Clear to auscultation bilaterally, Normal air movement Cardiovascular: Regular rate/rhythm, Normal S1 S2 Gastrointestinal: Normal bowel sounds, No tenderness Musculoskeletal: No tenderness Integumentary: No rashes Neurological: Normal speech, Normal affect Laboratory Data at Discharge: WBC 15.70 thou/uL (4.3-10.9) H 10/16/24 05:30 Hgb 8.6 g/dL (12.0-15.0) L 10/16/24 05:30 Hct 27.5 % (36.0-45.0) L 10/16/24 05:30 Plt Count 456 thou/uL (152-406) H 10/16/24 05:30 PT 15.5 SECONDS (10.0-13.0) H 10/12/24 07:36 INR 1.38 10/12/24 07:36 Sodium 138 mEq/L (136-145) 10/16/24 05:30 Potassium 4.0 mEq/L (3.5-5.1) D 10/16/24 05:30 BUN 10 mg/dL (7-18) 10/16/24 05:30 Creatinine 0.90 mg/dL (0.55-1.02) 10/16/24 05:30 Glucose 143 mg/dL (74-106) H 10/16/24 05:30 Phosphorus 2.8 mg/dL (2.5-4.9) 10/16/24 05:30 Magnesium 2.0 mg/dL (1.6-2.4) 10/16/24 05:30 Total Bilirubin 0.6 mg/dL (0.2-1.0) 10/16/24 05:30 AST 33 U/L (15-37) 10/16/24 05:30 ALT 39 U/L (13-56) 10/16/24 05:30 Alkaline Phosphatase 157 U/L (45-117) H 10/16/24 05:30 Triglycerides 74 mg/dL (<150) 10/13/24 05:03 Cholesterol 85 mg/dL (<200) 10/13/24 05:03 HDL Cholesterol 31 mg/dL (40-60) L 10/13/24 05:03 Cholesterol/HDL Ratio 2.74 10/13/24 05:03 Lipase 34 U/L (13-75) 10/12/24 07:36 Home Medications: Amox/Clavulanate [Augmentin 875-125 Tab] 875 mg PO BID 7 Days #14 tab 10/16/24 Hydrocodone 5/APAP 325 [[place] 5/325] 1 tab PO Q8H PRN #15 tab 10/16/24 Losartan/Hydrochlorothiazide [Losartan-Hctz 50-12.5 mg Tab] 1 tab PO DAILY 10/16/24 New Medications: Amox/Clavulanate [Augmentin 875-125 Tab] 875 mg PO BID 7 Days #14 tab Hydrocodone 5/APAP 325 [[place] 5/325] 1 tab PO Q8H PRN #15 tab PRN Reason: Pain Physician Discharge Instructions: Patient was admitted to the hospital for acute cholecystitis. She was also noted to be anemic during her hospitalization requiring blood transfusion of 2 units which is likely secondary to heavy menses. Surgery was initially delayed given need for blood transfusion, MRCP was also performed which showed mild extrahepatic biliary ductal dilatation with CBD measuring 10 mm, no choledocholithiasis or stricture was noted. Her iron level was extremely low, less than 10 TIBC 245 transferring 175 transferring saturation percent was 4.1 and ferritin was 78.9. She underwent a laparoscopic cholecystectomy on 10/15/2024, a CELSO drain was placed and patient is been doing very well postoperatively. She stable for discharge and outpatient follow-up on Thursday 10/19 with general surgery to have her CELSO drain removed. CELSO drain with small amount of serosanguineous drainage thus far. Also discussed need for iron supplementation and follow-up with [facility] at discharge in regards to heavy menses Diet: Grover Activity: Ad shari Followup: Ozzy Bustamante MD [ACTIVE - CAN ADMIT] - 10/19/24 NONE,NONE [Primary Care Provider] - Time spent managing pt's care (in minutes): 47
--- NOTE | 2024-10-16 14:49 | PN ---
Date of Progress Note: 10/16/2024 Subjective: Status post laparoscopic cholecystectomy, acute cholecystitis, symptomatic cholelithiasi s, anemia, electrolyte imbalance. The patient is doing better. Has good spirit. Has no distress. She is communicating. She is tolerating diet. She is afebrile. No shortness of breath. No chest p ain. Objective: Abdomen: Soft and depressible. Intact surgical site. CELSO drain, serous. No evidence of bile or any bleeding in that region. Surgical site is intact. Extremities: Good capillary refill. Laboratory Data: WBC count is 15, and hemoglobin of 8.6 and platelets of 456. LFTs shows a normal t otal bilirubin of 0.6, AST 33, ALT 39, alkaline phosphate coming down to 157. Plan: From the surgical standpoint, continue diet. If she goes home today, then we will like to see her this Tuesday in my office where we can once again check her clinical status and probably remove t he CELSO drain there. Continue antibiotics at home, and we talked to her and explained to her the CELSO dr derik chan. DEEPTI/JO Voice ID: [id number] Report ID: [id number]
== END 2024-10-16 15:26 | disposition home or self-care (01) | DRG 854 ==
LOC: ER 06:18 → ERHOLD 09:56 → 2ND 16:29
PROVIDERS: ADMIT Internal Medicine; ATTEND Hospitalist
PROC: 30233N1 Transfusion of Nonautologous Red Blood Cells into Peripheral Vein, Percutaneous Approach (ICD-10-PCS; 2024-10-13)
PROC: 0FT44ZZ Resection of Gallbladder, Percutaneous Endoscopic Approach (ICD-10-PCS; principal; 2024-10-15 13:45)
DX: A41.9 Sepsis, unspecified organism (principal); D68.9 Coagulation defect, unspecified; K80.00 Calculus of gallbladder with acute cholecystitis without obstruction; N17.9 Acute kidney failure, unspecified; N39.0 Urinary tract infection, site not specified; E87.6 Hypokalemia; E83.42 Hypomagnesemia; I10 Essential (primary) hypertension; R79.89 Other specified abnormal findings of blood chemistry; D50.9 Iron deficiency anemia, unspecified; E83.39 Other disorders of phosphorus metabolism; K52.9 Noninfective gastroenteritis and colitis, unspecified; Z11.52 Encounter for screening for COVID-19; Z79.899 Other long term (current) drug therapy
CPT/HCPCS: 36415; 36430; 70450; 71045; 71250; 72125; 74176; 74181; 76705; 80048; 80053; 80061; 80076; 81001; 81025; 82728; 83540; 83605; 83690; 83735; 83880; 83993; 84100; 84132; 84466; 84484; 85014; 85018; 85025; 85610; 86850; 86900; 86901; 86920; 87045; 87046; 87177; 87209; 87324; 87428; 88304; 93005; 99285; J0744; J1100; J1171; J2003; J2250; J2405; J2543; J2550; J2704; J2710; J3010; J3475; J3480; J7030; J7040; J7050; J7120; P9016